=== PATIENT | male | born 1990 | race Caucasian/White ===

== ENCOUNTER 2017-11-02 13:35 | Emergency (ER) | payer OTHER ==
[~2017-11-02] VITALS: Ht 175.3 cm; Wt 104.8 kg
[2017-11-02 13:49] VITALS: BP 138/88; Ht 175.3 cm; Wt 104.8 kg
== END 2017-11-02 17:03 | disposition home or self-care (01) ==
LOC: ED 13:35
DX: T16.1XXA Foreign body in right ear, initial encounter (principal); X58.XXXA Exposure to other specified factors, initial encounter; Y93.89 Activity, other specified; Y92.89 Other specified places as the place of occurrence of the external cause; Y99.8 Other external cause status
CPT/HCPCS: J1885